=== PATIENT | male | born 2000 | race African-American/Black ===

== ENCOUNTER 2024-08-20 15:19 | Emergency (ER) | payer OTHER, SELFPAY ==
--- NOTE | ~2024-08-20 | XR_ITS ---
XR chest 1V portable Ordering provider: Dayo Deng APRN History: 23 years Male with . syncope; PASSED OUT DUE TO HEAT . Comparison: None. FINDINGS: MEDIASTINUM: The cardiac silhouette is not enlarged. LUNGS: No infiltrates, effusions or pneumothorax. OTHER: No free air under the diaphragm. IMPRESSION: No acute cardiopulmonary pathology. Reviewed, dictated and finalized at location A.
[2024-08-20 15:16] VITALS: BP 123/79; PULSE 57; RESP 18; O2SAT 100
[2024-08-20 15:30] LABS: Glucose Point of Care 94 mg/dl (65-105)
--- NOTE | 2024-08-20 15:39 | ECG_ITS ---
Test Date: 2024-08-20 15:32:48 Measurements Intervals [place] Rate: 59 P: 36 KS: 152 QRS: 72 QRSD: 89 T: 27 QT: 373 QTc: 370 Interpretive Statements SINUS BRADYCARDIA ST ELEVATION IN DIFFUSE LEADS, PROBABLY EARLY REPOLARIZATION BASELINE ARTIFACT- I, II, III, AVR, AVL, V4-V5 BORDERLINE ECG No previous ECG available for comparison Electronically Signed On 08-21-2024 08:06:36 CDT by Carlos Carmen D.O.
--- NOTE | 2024-08-20 15:41 | ED.SYNCOPE ---
HPI - Syncope General Chief Complaint: Syncope Stated Complaint: ?overheated Source: patient and RN notes reviewed Mode of arrival: EMS Limitations: no limitations History of Present Illness HPI narrative: 23 y/o AAM in the ED via EMS for potential syncope vs sz. 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 Pt states he was feeling weak, dizzy, and lightheaded, told to have a seat by his mother who also works w/ him. Pt states he laid on the ground and said, went to sleep for 10-15 minutes. Hx of sz, anxiety, and panic attacks. Pt denies sz, denies LOC, just endorses being tired, denies myalgia or postictal state; continent of bowel and bladder. Pt has not had a documented sz in a year per pt, no longer taking sz med for at least a month+. Pt unsure of seizure medicine. Pt also endorses substernal and left-sided CP, 9/10, sharp in nature, denies radiation, denies fall and/or trauma. Endorses some SOB on arrival. Pt denies any drug use, smoke 1-2 black and mild cigarillos daily. Endorses occasional ETOH use, non today. No access obtained by EMS enroute, placed on 2LNC for comfort. Review of Systems Review of Systems: CONSTITUTIONAL: Denies fever, chills, or sweats. EYES: Denies visual changes, redness, or discharge. ENT: Denies rhinorrhea, congestion, sore throat, or otalgia. CARDIOVASCULAR: Denies palpitations, or edema. Endorses substernal and left sided CP. RESPIRATORY: Denies cough. Endorses slight SOB. GASTROINTESTINAL: Denies abdominal pain, nausea, vomiting, or diarrhea. GENITOURINARY: Denies dysuria or hematuria. SKIN: Denies rash or itching. MUSCULOSKELETAL: Denies back pain, joint pain, or myalgia. NEUROLOGIC: Denies headache, numbness. Endorses weakness. PSYCHIATRIC: Denies anxiety or depression. 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 HEAD: Normocephalic, atraumatic. EYES: PERRLA and EOMI. ENT: Nares clear, no rhinorrhea or epistaxis. Mucous membranes moist. NECK: Supple. CHEST: Clear to auscultation. No respiratory distress. Pain w/ palpation of the sternal and left chest wall. HEART: Regular rate and rhythm. No murmur heard. Normal peripheral pulses. ABDOMEN: Soft, nontender, nondistended, normal active bowel sounds. EXTREMITIES: Normal range of motion. No edema. SKIN: Warm, dry, no rash. NEURO: No focal deficits. Alert and oriented x3. CN II-XII intact PSYCH: Normal mood and affect. Course Vital Signs Vital signs: Vital Signs Pulse Rate 57 L 08/20/24 15:16 Respiratory Rate 18 08/20/24 15:16 Blood Pressure 123/79 08/20/24 15:16 Pulse Oximetry 100 08/20/24 15:16 Pulse Rate 65 08/20/24 17:07 Respiratory Rate 16 08/20/24 17:07 Blood Pressure 123/79 08/20/24 15:16 Pulse Oximetry 100 08/20/24 17:07 MDM - Syncope MDM Narrative Medical decision making narrative: Patient's CMP, CBC, urinalysis, and CK all indicative of dehydration. Patient received 2 L of normal saline in the department. Spoke with patient and patient's mother regarding plan of care and next steps. Patient advised to start taking a multivitamin for low iron and possibly follow-up with primary care provider. EKG and x-ray all within normal limits. Patient be discharged with instructions to fluids; e.g. water or Pedialyte/Gatorade. Patient also be sent home with doctors note. Patient able to stand and walk without dizziness or issue. PT EKG and troponin all normal. CP resolved at time of discharge. Differential Diagnosis Differential diagnosis: Likely syncope due to orthostatic hypotension, vasovagal syncope, dehydration and other (Rhabdomyolisis) Medical Records Attestation: I reviewed the patient's medical records. Lab Data 08/20/24 15:41 08/20/24 15:41 Labs: Lab Results 08/20/24 08/20/24 08/20/24 Range/Units 15:26 15:41 16:45 WBC 10.7 H (4.5-10.0) K/mm3 RBC 5.83 (4.6-6.20) M/mm3 Hgb 13.2 L (14.0-18.0) g/dL Hct 42.1 (42.0-52.0) % MCV 72.2 L (80-100) fl MCH 22.6 L (26-34) pg MCHC 31.4 L (32-36) g/dl RDW 16.1 H (11.5-14.5) % Plt Count 238 (150-375) k/mm3 MPV 9.5 (7.4-10.4) fl Immature Gran % (Auto) 0.2 (0-0.5) % Neut % (Auto) 42.3 L (45.5-73.1) % Lymph % (Auto) 47.5 H (18.3-44.2) % [place] % (Auto) 7.7 (2.6-8.5) % Eos % (Auto) 1.8 (0-4.4) % Baso % (Auto) 0.5 (0.2-1.2) % Lymph # (Auto) 5.07 H (0.9-3.2) K/mm3 [place] # (Auto) 0.8 H (0.1-0.6) K/mm3 Eos # (Auto) 0.2 (0-0.3) K/mm3 Baso # (Auto) 0.1 (0.0-0.1) K/mm3 Abs Immat Gran (auto) 0.02 (0.00-0.031) K/mm3 Absolute Neuts (auto) 4.5 (1.3-6.7) K/mm3 Absolute Nucleated RBC 0.000 (0.0-0.012) K/mm3 Nucleated RBC % 0.0 (0.0-0.2) % Sodium 141 (137-145) mmol/L Potassium 4.4 (3.4-5.0) mmol/L Chloride 108 H (98-107) mmol/L Carbon Dioxide 23 (22-30) mmol/L Anion Gap 10 (4-12) mmol/L BUN 7 L (9-20) mg/dL Creatinine 1.11 (0.7-1.3) mg/dL Estim Creat Clear Calc 78 ml/min Estimated GFR > 60 (59 - ) Glucose 76 (65-110) mg/dL POC Capillary Glucose 94 (65-105) mg/dl Lactic Acid 1.5 (0.7-2.0) mmol/L Calcium 9.4 (8.4-10.2) mg/dL Total Bilirubin 1.2 (0.2-1.3) mg/dL AST 38 (17-59) U/L ALT 17 (6-50) U/L Alkaline Phosphatase 60 (38-126) U/L Total Creatine Kinase 398 H (55-170) U/L Troponin I < 0.012 (0.000-0.034) ng/mL Total Protein 7.3 (6.3-8.2) g/dL Albumin 4.4 (3.5-5.1) g/dL Urine Color Yellow (Yellow) Urine Appearance Clear (Clear) Urine pH 7.5 (5.0-9.0) Ur Specific [place] 1.025 (1.001-1.035) Urine Protein Trace (Negative) mg/dL Urine Glucose (UA) Negative (Negative) mg/dL Urine Ketones Trace H (Negative) mg/dL Ur Blood (Man) 3+ H (Negative) Urine Nitrate Negative (Negative) Urine Bilirubin Negative (Negative) Urine Urobilinogen 1.0 (<2.0) mg/dL Leukocyte Esterase Rfl Trace H (Negative) OSIEL/UL Urine RBC >100 H (0-2) /hpf Urine WBC 0-5 (0-3) /hpf Ur Squamous Epith Cells None seen (Few) /hpf Urine Bacteria None seen /hpf Urine Casts 0-2 Urine Opiates Screen Negative (Negative) Urine Methadone Screen Negative (Negative) Ur Barbiturates Screen Negative (Negative) Ur Phencyclidine Scrn Negative (Negative) Ur Amphetamine Screen Negative (Negative) U Benzodiazepines Scrn Negative (Negative) Urine Cocaine Screen Negative (Negative) U Cannabinoids Screen Positive A (Negative) Imaging Data Radiologist's impression: ITS Impressions Chest X-Ray 08/20/24 16:02 IMPRESSION: No acute cardiopulmonary pathology. ECG Data EKG #1: Attestation: I personally reviewed and interpreted this ECG as follows: ECG completion date: 08/20/24 ECG completion time: 15:32 Prior ECG tracings: not available for review EKG Interpretation: bradycardia, sinus rhythm, ST elevation (Minimal, probable early repolarization), normal QRS and normal QT Discharge Plan Discharge Clinical Impression: Dehydration Patient Disposition: Home Condition: Stable Instructions: Antibiotic Form, Dehydration (ED) Additional Instructions: Drink plenty of water, at least half your body weight in ounces. Pt can also supplement with Pedialyte or Gatorade as well. Pt also advised to take [id number] multivitamin to help correct low iron levels. Patient Language: [place] Follow-up/Referrals: Mu Murguia MD [Physician] - UNKNOWN,DOCTOR [Primary Care Provider] - Stand Alone Forms: Work/School Release IP
[2024-08-20 15:47] LABS: Basophils Absolute Auto 0.1 K/mm3 (0.0-0.1); Basophils Percent Auto 0.5 % (0.2-1.2); Eosinophils Absolute Auto 0.2 K/mm3 (0-0.3); Eosinophils Percent Auto 1.8 % (0-4.4); Hematocrit 42.1 % (42.0-52.0); Hemoglobin 13.2 g/dL (14.0-18.0); Immature Granulocyte Absolute 0.02 K/mm3 (0.00-0.031); Immature Granulocyte Percent A 0.2 % (0-0.5); Lymphocytes Absolute Auto 5.07 K/mm3 (0.9-3.2); Lymphocytes Percent Auto 47.5 % (18.3-44.2); Mean Corpuscular HGB Conc 31.4 g/dl (32-36); Mean Corpuscular Hemoglobin 22.6 pg (26-34); Mean Corpuscular Volume 72.2 fl (80-100); Mean Platelet Volume 9.5 fl (7.4-10.4); Monocytes Absolute Auto 0.8 K/mm3 (0.1-0.6); Monocytes Percent Auto 7.7 % (2.6-8.5); Neutrophils Absolute Auto 4.5 K/mm3 (1.3-6.7); Neutrophils Percent Auto 42.3 % (45.5-73.1); Platelet Count Result 238 k/mm3 (150-375); Red Blood Count 5.83 M/mm3 (4.6-6.20); Red Cell Distribution Width 16.1 % (11.5-14.5); White Blood Count 10.7 K/mm3 (4.5-10.0)
[2024-08-20 15:55] LABS: Lactic Acid Reflex 1.5 mmol/L (0.7-2.0)
[2024-08-20 15:56] LABS: Alanine Aminotransferase 17 U/L (6-50); Albumin Level 4.4 g/dL (3.5-5.1); Alkaline Phosphatase 60 U/L (38-126); Anion Gap 10 mmol/L (4-12); Aspartate Amino Transferase 38 U/L (17-59); Bilirubin,Total 1.2 mg/dL (0.2-1.3); Blood Urea Nitrogen 7 mg/dL (9-20); Calcium 9.4 mg/dL (8.4-10.2); Carbon Dioxide 23 mmol/L (22-30); Chloride 108 mmol/L (98-107); Estimated CRCL calculation 78 ml/min; Estimated Glomerular Filt Rate > 60; Glucose 76 mg/dL (65-110); Potassium 4.4 mmol/L (3.4-5.0); Sodium 141 mmol/L (137-145); Total Protein 7.3 g/dL (6.3-8.2)
[2024-08-20] MEDS: SODIUM CHLORIDE 0.9% IV 1,000 ML 999 ML IV CONT ×2 (16:24→17:30)
[2024-08-20 16:51] LABS: Creatine Kinase 398 U/L (55-170)
[2024-08-20 16:55] LABS: Add Urine Microscopic? YES; Appearance Urine Clear (Clear); Bacteria Urine None Seen /hpf; Bilirubin Urine Negative (Negative); Blood Urine 3+ (Negative); Color Urine Yellow (Yellow); Glucose Urine UA Negative (Negative); Ketones Urine Trace mg/dL (Negative); Leukocyte Esterase Ur Trace LEU/UL (Negative); Nitrate Urine Negative (Negative); Non Pathogenic Casts 0-2; Protein Urine Trace mg/dL (Negative); RBC Urine >100 /hpf (0-2); Specific Grav Ur 1.025 (1.001-1.035); Squamous Epithelial Cell Urine None Seen /hpf (Few); WBC Urine 0-5 /hpf (0-3); pH Urine 7.5 (5.0-9.0)
[2024-08-20 17:04] LABS: Troponin I < 0.012 ng/mL (0.000-0.034)
[2024-08-20 17:07] VITALS: PULSE 65; RESP 16; O2SAT 100
[2024-08-20 17:53] LABS: Amphetamine Screen Urine Negative (Negative); Barbiturate Screen Urine Negative (Negative); Benzodiazepines Screen Urine Negative (Negative); Cannabinoid Screen Urine Positive (Negative); Cocaine Screen Urine Negative (Negative); Methadone Screen Urine Negative (Negative); Opiate Screen Urine Negative (Negative); Phencyclidine Screen Urine Negative (Negative)
== END 2024-08-20 18:44 | disposition home or self-care (01) ==
PROVIDERS: Emergency Provider Registered Nurse Emergency
DX: E86.0 Dehydration (principal)
CPT/HCPCS: 36415; 71045; 80053; 80307; 81001; 82550; 82948; 83605; 84484; 85025; 93005; 96360; 96361; 99284; J7030